=== PATIENT | female | born 1980 | race African-American/Black ===

== ENCOUNTER 2017-07-10 13:45 | Emergency (ER) | payer BC ==
[~2017-07-10] VITALS: Ht 170.2 cm; Wt 126.6 kg
[2017-07-10] MEDS ORDERED: PEPCID20 MG PO (14:38)
[2017-07-10] MEDS ORDERED: MELOXICAM7.5 MG PO (14:38)
[2017-07-10] MEDS ORDERED: ROBAXIN-750750 MG PO (14:38)
[2017-07-10] MEDS ORDERED: KETOROLAC TROMETHAMINE 60 MG/2 ML VIAL IM ONE (14:45)
[2017-07-10] MEDS ORDERED: TYLENOL WITH C1 EACH PO (15:21)
[2017-07-10 15:46] VITALS: BP 150/90
== END 2017-07-10 15:10 | disposition home or self-care (01) ==
LOC: FSED 13:45
DX: M51.17 Intervertebral disc disorders with radiculopathy, lumbosacral region (principal); M79.7 Fibromyalgia; J45.909 Unspecified asthma, uncomplicated
CPT/HCPCS: 99282; J1885